=== PATIENT | male | born 1955 | race Caucasian/White ===

== ENCOUNTER 2018-06-18 18:15 | Emergency (ER) | payer OTHER ==
[~2018-06-18] VITALS: Ht 170.2 cm; Wt 72.6 kg
[~2018-06-18 18:15] MED LIST: ASPIRIN325 MG PO; ATORVASTATIN CA20 MG PO; CLOPIDOGREL75 MG PO; LISINOPRIL2.5 MG PO; METOPROLOL TART25 MG PO
[2018-06-18] MEDS ORDERED: MECLIZINE HCL25 MG PO (18:49)
[2018-06-18] MEDS ORDERED: PREDNISONE10 MG PO (18:49)
[2018-06-18] MEDS ORDERED: BUPROPION XL150 MG PO (18:49)
[2018-06-18 19:13] LABS: BASOPHILS % 0.3 % (0.0-1.0); EOSINOPHILS # (AUTO) 0.1 (0.0-0.4); HEMATOCRIT 45.3 % (38.2-49.6); HEMOGLOBIN 15.9 g/dL (14.0-18.0); LYMPHOCYTES # (AUTO) 2.7 (1.0-3.2); LYMPHOCYTES % 21.3 % (18.0-39.1); MEAN CORPUSCULAR HEMOGLOBIN 33.5 pg (28-32); MEAN CORPUSCULAR HGB CONC 35.1 g/dL (31-35); MEAN CORPUSCULAR VOLUME 95.6 fL (81-99); MONOCYTES # (AUTO) 0.9 (0.2-0.8); MONOCYTES % 6.8 % (4.4-11.3); NEUTROPHILS # (AUTO) 8.8 (2.1-6.9); NEUTROPHILS % 69.9 % (38.7-80.0); PLATELET COUNT 236 x10e3/uL (140-360); RED BLOOD COUNT 4.74 x10e6/uL (4.3-5.7)
[2018-06-18] MEDS ORDERED: MECLIZINE HCL 12.5 MG TAB PO ONE (19:15)
[2018-06-18 19:23] LABS: INR 0.81
[2018-06-18 19:24] LABS: PARTIAL THROMBOPLASTIN TIME 26.9 seconds (23.8-35.5)
[2018-06-18 19:25] LABS: ALANINE AMINOTRANSFERASE 17 IU/L (0-55); ALBUMIN 3.3 g/dL (3.5-5.0); ALBUMIN/GLOBULIN RATIO 1.2 (0.8-2.0); ALKALINE PHOSPHATASE 58 IU/L (40-150); ANION GAP 14.1 mmol/L (8-16); BLOOD UREA NITROGEN 19 mg/dL (7-26); BUN/CREATININE RATIO 17 (6-25); CALCIUM 8.9 mg/dL (8.4-10.2); CARBON DIOXIDE 22 mmol/L (22-29); CHLORIDE 109 mmol/L (98-107); CREATINE KINASE 54 IU/L (30-200); CREATININE, SERUM 1.11 mg/dL (0.72-1.25); EST GLOMERULAR FILTRATION RATE > 60 ML/MIN (60-); GLUCOSE 190 mg/dL (74-118); POTASSIUM 4.1 mmol/L (3.5-5.1); SODIUM 141 mmol/L (136-145)
[2018-06-18 19:34] LABS: BILIRUBIN,URINE NEGATIVE (NEGATIVE); CLARITY,URINE CLEAR (CLEAR); COLOR,URINE YELLOW (YELLOW); KETONES,URINE NEGATIVE (NEGATIVE); LEUKOCYTE ESTERASE ,URINE NEGATIVE (NEGATIVE); NITRITE,URINE NEGATIVE (NEGATIVE); PROTEIN,URINE DIPSTICK NEGATIVE (NEGATIVE); URINE UROBILINOGEN 0.2 mg/dL (0.2 - 1)
--- NOTE | 2018-06-18 19:39 | Diagnostic Imaging Report ---
EXAMINATION: Head CT without contrast. HISTORY:Dizziness and blurred vision for one week. COMPARISON:CT brain from 12/08/2016. TECHNIQUE: Multidetector axial images were obtained from the foramen magnum to the vertex without contrast. The images were reconstructed using brain and bone algorithms. Thin section brain images were reformatted into coronal and sagittal planes. Dose modulation, iterative reconstruction, and/or weight based adjustment of the mA/kV was utilized to reduce the radiation dose to as low as reasonably achievable. Intravenous contrast: None IMAGE QUALITY: Acceptable. FINDINGS: Skull/scalp: No lytic or blastic. lesions. No surgical changes. Parenchyma: Nonspecific bilateral frontoparietal patchy white matter hypodensity are likely related to small vessel ischemic changes. Unchanged cortical-based hypodensity in the posterior aspect of left superior temporal gyrus and inferior parietal lobule represents chronic encephalomalacia from prior vascular insult. No acute hemorrhage, mass or acute major vascular territorial infarct. Arteries: No density suggestive of thrombosis. Mild atherosclerotic calcification in bilateral carotid siphon. Dural sinuses: No abnormal density suggestive of thrombosis. Ventricles: Mild compensated dilatation due to volume loss. No hydrocephalus. Extra-axial spaces: No abnormal density. Brain volume: Normal for age. Craniocervical junction: No mass, Chiari malformation, or basilar invagination. Sella: No mass. Paranasal/mastoid sinuses: Mild mucosal thickening in bilateral ethmoid sinuses. IMPRESSION: No acute intracranial abnormality. No change since CT brain from 12/08/2016. Chronic findings: 1. Mild supratentorial white matter microvascular ischemic changes. 2. Mild generalized cerebral volume loss. 3. 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 Signed by: Dr. Rosa Akins M.D. on 06/18/2018 7:35 PM
--- NOTE | 2018-06-18 19:41 | Diagnostic Imaging Report ---
EXAMINATION: CHEST SINGLE (PORTABLE) INDICATION: Dizziness and blurry vision \S\ERMD ORDER \[id number] \S\1850 \S\Y COMPARISON: 12/08/2016 FINDINGS: AP view TUBES and LINES: None. LUNGS: Lungs are well inflated. There is no evidence of pneumonia or pulmonary edema. PLEURA: No significant pleural effusion or pneumothorax. HEART AND MEDIASTINUM: The cardiomediastinal silhouette is unremarkable. Median sternotomy wires are again seen. BONES AND SOFT TISSUES: No acute osseous lesion. Soft tissues are unremarkable. UPPER ABDOMEN: No free air under the diaphragm. IMPRESSION: No acute thoracic abnormality. Signed by: Dr. Krzysztof Ramon MD on 06/18/2018 7:37 PM
[2018-06-18 19:45] LABS: BACTERIA,URINE RARE /HPF
[2018-06-18 20:32] VITALS: BP 123/91
== END 2018-06-18 20:46 | disposition home or self-care (01) ==
LOC: ER 18:15
DX: R42 Dizziness and giddiness (principal); I25.10 Atherosclerotic heart disease of native coronary artery without angina pectoris; I10 Essential (primary) hypertension; I25.2 Old myocardial infarction; Z95.1 Presence of aortocoronary bypass graft; Z95.5 Presence of coronary angioplasty implant and graft; F17.210 Nicotine dependence, cigarettes, uncomplicated
CPT/HCPCS: 36415; 70450; 71045; 80053; 81001; 82550; 82553; 83735; 83880; 84484; 85025; 85610; 85730; 93005; 99284

== ENCOUNTER → 2018-09-17 | Outpatient (CLI) | payer OTHER ==
[~2018-09-17] MED LIST changes: +BUPROPION XL150 MG PO; +MECLIZINE HCL25 MG PO; +PREDNISONE10 MG PO; +REGADENOSON 0.4 MG/5 ML SYR IV ONE
--- NOTE | 2018-10-01 13:35 | Cardiology Report ---
DATE OF STUDY: September 17, 2018 LEXISCAN NUCLEAR STRESS TEST INDICATIONS: Chest pain. DESCRIPTION OF PROCEDURE: After informed consent, patient was brought to the stress lab. He was given 11 mCi of technetium 99 Myoview, and myocardial perfusion SPECT images were obtained in the horizontal long axis, short axis and vertical long axis views. Subsequently patient was given 0.4 mg of Lexiscan intravenously, and then 32 mCi of technetium 99 Myoview was given intravenously and myocardial perfusion SPECT images were obtained in the horizontal long axis, short axis and vertical long axis views. Gating images were also obtained. Patient tolerated this procedure without any complications. REPORT: Baseline EKG shows sinus rhythm at 81 beats per minute. Normal axis. Normal intervals. T-wave inversions in I, AVL. Q waves in the inferior leads and anterior leads. PARAMETERS 1. Resting heart rate is 75 beats per minute. 2. Maximal heart rate 102 beats per minute. 3. Resting blood pressure 125/85 mmHg. 4. Maximum blood pressure 131/88 mmHg. REASON FOR TERMINATION: Endpoint attained. INTERPRETATION 1. Negative for chest pain. 2. Negative for arrhythmias. 3. Blood pressure response consistent with Lexiscan. 4. No significant ST-T changes seen during Lexiscan infusion compared to baseline. 5. Analysis of SPECT images reveals a small area of decreased radioisotope uptake in the anterior wall both during stress and rest, and there is a small to moderate area of decreased radioisotope uptake in the inferior wall both during stress and rest. There is a small area of decreased radioisotope uptake in the lateral wall during stress, which reverses during rest. CONCLUSIONS 1. 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 There is a small area of lateral wall ischemia. 2. Inferolateral wall hypokinesis is noted. 3. The overall ejection fraction is 44%. Job#: [id number] EV
== END ==
LOC: NM 07:38
DX: M79.602 Pain in left arm (principal); I25.810 Atherosclerosis of coronary artery bypass graft(s) without angina pectoris; E78.5 Hyperlipidemia, unspecified
CPT/HCPCS: 78452; 93017; A9502; J2785

== ENCOUNTER 2018-11-05 21:30 | Observation (INO) | payer MEDICARE, OTHER ==
[~2018-11-05] VITALS: Ht 172.7 cm; Wt 81.8 kg
[~2018-11-05 21:30] MED LIST changes: -REGADENOSON 0.4 MG/5 ML SYR IV ONE
--- OUTSIDE RECORDS SUMMARY | 2018-11-05 21:33 | XMS REPORT ---
Author [facility] Address Unknown Phone Unavailable Care Team Providers Care Meteorology Faculty Member Name Role Phone KIKI NICOLE Unavailable Unavailable Shantel LACEY Unavailable Unavailable Problems This patient has no known problems. Allergies, Adverse Reactions, Alerts This patient has no known allergies or adverse reactions. Medications This patient has no known medications. Results Test Description Test Time Test Comments Text Results Atomic Results Result Comments Stress Test - Treadmill ONLY 2018-10-01 12:22:00 [place] [address] Patient Name : SHERRELL KEENE MR #: [id number] : 1955 Age/Sex: 63/M Adm Physician : KIKI NICOLE MD Admit Date : Location : [place] Room/Bed : REPORT: Cardiology Report DATE OF STUDY: September 17, 2018 LEXISCAN NUCLEAR STRESS TEST INDICATIONS: Chest pain. DESCRIPTION OF PROCEDURE: After informed consent, patient was brought to the stress lab. He was given 11 mCi of technetium 99 Myoview, and myocardial perfusion SPECT images were obtained in the horizontal long axis, short axis and vertical long axis views. Subsequently patient was given 0.4 mg of Lexiscan intravenously, and then 32 mCi of technetium 99 Myoview was given intravenously and myocardial perfusion SPECT images were obtained in the horizontal long axis, short axis and vertical long axis views. Gating images were also obtained. Patient tolerated this procedure without any complications. REPORT: Baseline EKG shows sinus rhythm at 81 beats per minute. Normal axis. Normal intervals. T-wave inversions in I, AVL. Q waves in the inferior leads and anterior leads. PARAMETERS 1. Resting heart rate is 75 beats per minute. 2. Maximal heart rate 102 beats per minute. 3. Resting blood pressure 125/85 mmHg. 4. Maximum blood pressure 131/88 mmHg. REASON FOR TERMINATION: Endpoint attained. INTERPRETATION 1. Negative for chest pain. 2. Negative for arrhythmias. 3. Blood pressure response consistent with Lexiscan. 4. No significant ST-T changes seen during Lexiscan infusion compared to baseline. 5. Analysis of SPECT images reveals a small area of decreased radioisotope uptake in the anterior wall both during stress and rest, and there is a small to moderate area of decreased radioisotope uptake in the inferior wall both during stress and rest. There is a small area of decreased radioisotope uptake in the lateral wall during stress, which reverses during rest. CONCLUSIONS 1. 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 There is a small area of lateral wall ischemia. 2. Inferolateral wall hypokinesis is noted. 3. The overall ejection fraction is 44%. Job#: [id number] EV Signature Date Dictated By: KIKI NICOLE MD Transcribed By: DALE on 10/01/18 <Electronically signed by KIKI NICOLE MD><<Signature on File>>10/02/18 [id number] COPY TO: CHEST SINGLE (PORTABLE) 2018-06-18 19:35:00 [place] [address] Patient Name: SHERRELL KEENE MR #: [id number] : 1955 Age/Sex: 62/M Req #: [id number] Adm Physician: Ordered by: RYAN ACKERMAN SUPERINTENDENT POWER Report #: [id number] Location: ER Room/Bed: Procedure: DX/CHEST SINGLE (PORTABLE) Exam Date: 06/18/18 Exam Time: 1850 REPORT STATUS: Signed EXAMINATION: CHEST SINGLE (PORTABLE) INDICATION: Dizziness and blurry vision COMPARISON: 12/08/2016 FINDINGS: AP view TUBES and LINES: None. LUNGS: Lungs are well inflated. There is no evidence of pneumonia or pulmonary edema. PLEURA: No significant pleural effusion or pneumothorax. HEART AND MEDIASTINUM: The cardiomediastinal silhouette is unremarkable. Median sternotomy wires are again seen. BONES AND SOFT TISSUES: No acute osseous lesion. Soft tissues are unremarkable. UPPER ABDOMEN: No free air under the diaphragm. IMPRESSION: No acute thoracic abnormality. Signed by: Dr. Krzysztof Andujar MD on 06/18/2018 7:37 PM Dictated By: KRZYSZTOF ANDUJAR MD 36 Transcribed By: NAVEED on 06/18/181936 COPY TO: RYAN ACKERMAN SUPERINTENDENT POWER CT BRAIN WO 2018-06-18 19:29:00 [place] [address] Patient Name: SHERRELL KEENE MR #: [id number] : 1955 Age/Sex: 62/M Req #: [id number] Adm Physician: Ordered by: RYAN ACKERMAN SUPERINTENDENT POWER Report #: [id number] Location: ER Room/Bed: Procedure: CT/CT BRAIN WO Exam Date: 06/18/18 Exam Time: 1850 REPORT STATUS: Signed EXAMINATION: Head CT without contrast. HISTORY:Dizziness and blurred vision for one week. COMPARISON:CT brain from 12/08/2016. TECHNIQUE: Multidetector axial images were obtained from the foramen magnum to the vertex without contrast. The images were reconstructed using brain and bone algorithms. Thin section brain images were reformatted into coronal and sagittal planes. Dose modulation, iterative reconstruction, and/or weight based adjustment of the mA/kV was utilized to reduce the radiation dose to as low as reasonably achievable. Intravenous contrast: None IMAGE QUALITY: Acceptable. FINDINGS: Skull/scalp: No lytic or blastic. lesions. No surgical changes. Parenchyma: Nonspecific bilateral frontoparietal patchy white matter hypodensity are likely related to small vessel ischemic changes. Unchanged cortical-based hypodensity in the posterior aspect of left superior temporal gyrus and inferior parietal lobule represents chronic encephalomalacia from prior vascular insult. No acute hemorrhage, mass or acute major vascular territorial infarct. Arteries: No density suggestive of thrombosis. Mild atherosclerotic calcification in bilateral carotid siphon. Dural sinuses: No abnormal density suggestive of thrombosis. Ventricles: Mild compensated dilatation due to volume loss. No hydrocephalus. Extra-axial spaces: No abnormal density. Brain volume: Normal for age. Craniocervical junction: No mass, Chiari malformation, or basilar invagination. Sella: No mass. Paranasal/mastoid sinuses: Mild mucosal thickening in bilateral ethmoid sinuses. IMPRESSION: No acute intracranial abnormality. No change since CT brain from 12/08/2016. Chronic findings: 1. Mild supratentorial white matter microvascular ischemic changes. 2. Mild generalized cerebral volume loss. 3. 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 Signed by: Dr. Rosa Akins M.D. on 06/18/2018 7:35 PM Dictated By: ROSA AKINS MD 34 Transcribed By: NAVEED on 06/18/181934 COPY TO: RYAN ACKERMAN NP
--- OUTSIDE RECORDS SUMMARY | 2018-11-05 21:33 | XMS REPORT | Clinical Summary ---
Author Author [facility] Address Unknown Phone Unavailable Care Team Providers Care Gas Or Water Meter Installer Name Role Phone Caleb Elder MD PCP Allergies Comments Active Allergy Reactions Severity Noted Date Penicillins Other (See 08/25/2018 Comments) Medications End Date Status Medication Sig Dispensed Refills Start Date Active atorvastatin (LIPITOR) 40 Take 40 mg by 4 MG tablet mouth daily. 8 Active buPROPion XL (WELLBUTRIN TAKE 1 TABLET 4 XL) 150 MG 24 hr tablet BY MOUTH 8 EVERY DAY IN THE MORNING Active clopidogrel (PLAVIX) 75 TAKE 1 TABLET 3 mg tablet (75 MG) BY 8 MOUTH DAILY Active isosorbide mononitrate TAKE 1 TABLET 2 (IMDUR) 30 MG 24 hr BY MOUTH 8 tablet EVERY DAY IN THE MORNING Active lisinopril Take 2.5 mg 4 (PRINIVIL,ZESTRIL) 2.5 mg by mouth 8 tablet daily. Active metoprolol tartrate Take 25 mg by 4 (LOPRESSOR) 25 mg tablet mouth 2 (two) 8 times a day. Active nitroglycerin (NITROSTAT) DISSOLVE 1 1 0.4 MG SL tablet TABLET UNDER 8 TONGUE NEEDED DIRECTED Active traMADol-acetaminophen TAKE 2 2 (ULTRACET) 37.5-325 mg TABLETS BY 8 per tablet MOUTH EVERY 8 HOURS NEEDED Active meclizine (ANTIVERT) 25 TAKE 1 TABLET 0 201 mg tablet BY MOUTH 8 TWICE A DAY FOR 14 DAYS Active Problems Problem Noted Date Asymmetrical sensorineural hearing loss 08/25/2018 Sensorineural hearing loss (SNHL) of both ears 08/25/2018 Encounters Care Team Description Date Type Specialty Dylan Galvez MD Sensorineural hearing loss (SNHL) of both ears; Asymmetrical sensorineural hearing loss 09/23/2018 Hospital Radiology Encounter Dylan Galvez MD Sensorineural hearing loss (SNHL) of both ears (Primary Dx); Asymmetrical sensorineural hearing loss 08/25/2018 Office Visit Otolaryngology after 11/04/2017 Social History Date Tobacco Use Types Packs/Day Years Used Current Every Day Smoker Cigarettes 1 40 Smokeless Tobacco: Never Used Alcohol Use Drinks/Week oz/Week Comments Yes Alcohol Habits Answer Date Recorded How often do you have a drink containing alcohol? Never 08/25/2018 How many drinks containing alcohol do you have on Not asked a typical day when you are drinking? How often do you have six or more drinks on one Not asked occasion? Sex Assigned at Date Recorded Not on file Industry Job Start Date Occupation Not on file Not on file Not on file Travel End Travel History Travel Start No recent travel history available. Last Filed Vital Signs Time Taken Vital Sign Reading 08/25/2018 9:22 AM [facility] Blood Pressure 126/83 08/25/2018 9:22 AM [facility] Pulse 76 - Temperature - - Respiratory Rate - - Oxygen Saturation - - Inhaled Oxygen - Concentration 09/23/2018 7:00 PM [facility] [employer] [facility] Weight 74.8 kg (165 lb) 08/25/2018 9:22 AM [facility] Height 175.3 cm (5' 9") 09/23/2018 7:00 PM [facility] [employer] Body Mass Index 24.37 Plan of Treatment Health Maintenance Due Date Last Done Comments COLON CANCER SCREENING 2004 SHINGLES VACCINES (1 of 2004 2) INFLUENZA VACCINE 04/29/2018 Procedures Comments Procedure Name Priority Date/Time Associated Diagnosis MRI IAC W WO CONTRAST Routine 09/23/2018 Sensorineural hearing 8:02 PM [facility] loss (SNHL) of both ears Asymmetrical sensorineural hearing loss ESTIMATED GFR Routine 09/23/2018 7:06 PM [facility] POC CREATININE Routine 09/23/2018 7:06 PM [facility] COMPUTERIZED DYNAMIC Routine 08/25/2018 Sensorineural hearing POSTUROGRAPHY 9:49 AM [facility] [employer] [facility] loss (SNHL) of both ears COMPREHENSIVE HEARING Routine 08/25/2018 Sensorineural hearing TEST 9:49 AM [facility] [employer] [facility] loss (SNHL) of both ears after 11/04/2017 Results * MRI IAC W Wo Contrast (09/23/2018 8:02 PM [facility] [employer]) Narrative Performed At EXAMINATION:MRI IAC W WO CONTRAST [facility] COMPARISON:None CLINICAL HISTORY:H90.3 Sensorineural hearing lossbilateral, H90.5 Unspecified sensorineural hearing loss, Asymmetric sensory-neural hearing loss. COMMENTS:Multiplanar MR imaging of the brain and internal auditory canals was obtained with and without contrast material. FINDINGS:There is an air-fluid level suspected in the right maxillary sinus. There is fluid like signal in the mastoid air cells greater on the right. The brain shows no acute ischemic change, hemorrhage or mass effect. There is a chronic insult at the left parietotemporal convexity junction. There is mild signal change in the white matter. There is mild involutional change in the brain. The internal auditory canals do not show a focal mass. IMPRESSION:No definite mass in the brain or internal auditory canals. [facility]-[id number] Procedure Note Interface, Radiology Results Incoming - 09/23/2018 8:13 PM [facility] EXAMINATION: MRI IAC W WO CONTRAST COMPARISON: None CLINICAL HISTORY: H90.3 Sensorineural hearing loss bilateral, H90.5 Unspecified sensorineural hearing loss, Asymmetric sensory-neural hearing loss. COMMENTS: Multiplanar MR imaging of the brain and internal auditory canals was obtained with and without contrast material. FINDINGS: There is an air-fluid level suspected in the right maxillary sinus. There is fluid like signal in the mastoid air cells greater on the right. The brain shows no acute ischemic change, hemorrhage or mass effect. There is a chronic insult at the left parietotemporal convexity junction. There is mild signal change in the white matter. There is mild involutional change in the brain. The internal auditory canals do not show a focal mass. IMPRESSION: No definite mass in the brain or internal auditory canals. [facility]-[id number] Performing Organization Address City/State/Zipcode Phone Number [facility] [address] [place] [address] * Estimated GFR (09/23/2018 7:06 PM [facility] [employer] [facility]) Estimated GFR 71 mL/min/1.73 m2 [facility] Comment: [facility] CatergoryUnitsInte rpretation G1 >=90 Normal or high G2 60-89Mildly decreased N8p29-12 Mildly to moderately decreased M7p49-38 Moderately to severely decreased G4 15-29Severely decreased G5 <15Kidney failure The eGFR was calculated using the Chronic Kidney Disease Epidemiology Collaboration (CKD-EPI) equation. Interpretation is based on recommendations of the National Kidney Foundation-Kidney Disease Outcomes Quality Initiative (NKF-KDOQI) published in 2014. Specimen Blood Performing Organization Address [facility] Phone Number [address] [place] [address] PATHOLOGY AND GENOMIC MEDICINE [address] * POC creatinine (09/23/2018 7:06 PM [facility] [employer] [facility]) POC creatinine 1.1Comment: Test performed by 0.7 - 1.2 mg/dl [facility] [id number] [facility] Specimen Blood Performing Organization Address [facility] Phone Number [address] [place] [address] PATHOLOGY AND GENOMIC MEDICINE [address] * Comprehensive hearing test (08/25/2018 9:49 AM [facility] [employer] [facility]) * Posturography (08/25/2018 9:49 AM [facility] [employer]) after 11/04/2017 Insurance Payer Benefit Subscriber ID Type Phone Address Plan / Group [employer] TEX[employer] xxxxxxxxx O [facility] Advance Directives Patient has advance care planning documents on file. For more information, lesley valadez contact: Jerry Livingston [address] [place] [address]
[2018-11-05] MEDS ORDERED: SODIUM CHLORIDE 0.9% 1000ML 1,000 ML IV STA (21:47)
[2018-11-05 21:59] LABS: BASOPHILS # (AUTO) 0.1 (0.0-0.1); EOSINOPHILS # (AUTO) 0.3 (0.0-0.4); EOSINOPHILS % 3.2 % (0.0-6.0); HEMATOCRIT 42.9 % (38.2-49.6); LYMPHOCYTES # (AUTO) 1.3 (1.0-3.2); LYMPHOCYTES % 14.6 % (18.0-39.1); MEAN CORPUSCULAR VOLUME 94.3 fL (81-99); MONOCYTES # (AUTO) 0.8 (0.2-0.8); MONOCYTES % 8.8 % (4.4-11.3); NEUTROPHILS # (AUTO) 6.5 (2.1-6.9); NEUTROPHILS % 71.7 % (38.7-80.0); PLATELET COUNT 227 x10e3/uL (140-360); RED BLOOD COUNT 4.55 x10e6/uL (4.3-5.7); RED CELL DISTRIBUTION WIDTH 12.6 % (11.7-14.4)
[2018-11-05] MEDS ORDERED: FAMOTIDINE 20 MG/2 ML VIAL IV ONE (22:00)
[2018-11-05] MEDS ORDERED: ACETAMINOPHEN 325 MG TAB PO ONE (22:00)
[2018-11-05] MEDS ORDERED: ONDANSETRON HCL INJ 2MG/ML 2ML 2 MG/ML VIAL IV PRN ×2 (22:00→23:00)
--- NOTE | 2018-11-05 22:08 | Diagnostic Imaging Report ---
EXAM: XR CHEST 1 VIEW DATE: 11/05/2018 9:47 PM INDICATION: Cough COMPARISON: 06/18/2018, no report available FINDINGS: Lines and Tubes: None Heart and Mediastinum: The heart is upper limits of normal. Sternotomy changes present. Lungs and Pleura: Mild prominence of the interstitium with minimal basilar opacities. Bones and Soft Tissues: No acute findings. IMPRESSION: 1. Mild interstitial prominence could represent edema or infectious/inflammatory process. Signed by: Dr. Dale Silverman MD on 11/05/2018 10:04 PM
[2018-11-05 22:15] LABS: ALBUMIN 3.4 g/dL (3.5-5.0); ALBUMIN/GLOBULIN RATIO 1.3 (0.8-2.0); CALCIUM 8.9 mg/dL (8.4-10.2); CREATININE, SERUM 1.28 mg/dL (0.72-1.25)
[2018-11-05 23:00] LABS: CLARITY,URINE CLEAR (CLEAR); COLOR,URINE YELLOW (YELLOW); LEUKOCYTE ESTERASE ,URINE NEGATIVE (NEGATIVE); NITRITE,URINE NEGATIVE (NEGATIVE)
[2018-11-05] MEDS ORDERED: ZOLPIDEM TARTRATE 5 MG TAB PO PRN (23:00)
[2018-11-05] MEDS ORDERED: DIPHENHYDRAMINE HCL INJ 50 MG/ML VIAL IV PRN (23:00)
[2018-11-05] MEDS ORDERED: MORPHINE SULFATE INJ 4 MG/ML INJ 1ML IV PRN (23:00)
[2018-11-05] MEDS ORDERED: ACETAMINOPHEN 325 MG TAB PO PRN (23:00)
[2018-11-05] MEDS ORDERED: LACTULOSE SYRUP 20 GM/30 ML UDC PO PRN (23:00)
[2018-11-05 23:01] LABS: BACTERIA,URINE RARE /HPF; BILIRUBIN,URINE NEGATIVE (NEGATIVE); EPITHELIAL CELLS,URINE RARE /LPF; KETONES,URINE NEGATIVE (NEGATIVE); PROTEIN,URINE DIPSTICK NEGATIVE (NEGATIVE); RBC,URINE 0-5 /HPF (0-5); URINE UROBILINOGEN 1 mg/dL (0.2 - 1); WBC,URINE (MAN) 0-5 /HPF (0-5)
--- OUTSIDE RECORDS SUMMARY | 2018-11-05 23:24 | XMS REPORT | Clinical Summary ---
Author Author [facility] Address Unknown Phone Unavailable Care Team Providers Care Fiberglass Grinder Name Role Phone Caleb Elder MD PCP [...] Taken Vital Sign Reading 08/25/2018 9:22 AM MONUMENT [facility] Blood Pressure 126/83 08/25/2018 9:22 AM MONUMENT SETTER Pulse 76 - Temperature - - Respiratory Rate - - Oxygen Saturation - - Inhaled Oxygen - Concentration 09/23/2018 7:00 PM MONUMENT SETTER Weight 74.8 kg (165 lb) 08/25/2018 9:22 AM [facility]UMENT [facility]TER Height 175.3 cm (5' 9") 09/23/2018 7:00 PM [facility] Body Mass Index 24.37 Plan of Treatment Health Maintenance Due Date Last Done Comments COLON CANCER SCREENING 2004 SHINGLES VACCINES (1 of 2004 2) INFLUENZA VACCINE 04/29/2018 Procedures Comments Procedure Name Priority Date/Time Associated Diagnosis MRI IAC W WO CONTRAST Routine 09/23/2018 Sensorineural hearing 8:02 PM [facility] loss (SNHL) of both ears Asymmetrical sensorineural hearing loss ESTIMATED GFR Routine 09/23/2018 7:06 PM [facility]UMENT [facility]TER POC CREATININE Routine 09/23/2018 7:06 PM [facility] COMPUTERIZED DYNAMIC Routine 08/25/2018 Sensorineural hearing POSTUROGRAPHY 9:49 AM MONUMENT [facility]TER loss (SNHL) of both ears COMPREHENSIVE HEARING Routine 08/25/2018 Sensorineural hearing TEST 9:49 AM [facility] loss (SNHL) of both ears after 11/04/2017 Results * MRI IAC W Wo Contrast (09/23/2018 8:02 PM MONUMENT SETTER) Narrative Performed At EXAMINATION:MRI IAC W WO [...] in the brain or internal auditory canals. [facility]-[id number] Procedure Note Interface, Radiology Results Incoming - 09/23/2018 8:13 PM MONUMENT SETTER EXAMINATION: MRI IAC W WO CONTRAST COMPARISON: [...] in the brain or internal auditory canals. [facility]-[id number] Performing Organization Address City/State/Zipcode Phone Number [facility] [address] [place] [address] * Estimated GFR (09/23/2018 7:06 PM MONUMENT SETTER) Estimated GFR 71 mL/min/1.73 m2 [facility] Comment: [facility] CatergoryUnitsInte rpretation G1 >=90 Normal or high G2 60-89Mildly decreased U9r41-95 Mildly to moderately decreased X7d85-87 Moderately to severely decreased G4 15-29Severely decreased G5 <15Kidney failure The eGFR was calculated using the Chronic Kidney Disease Epidemiology Collaboration (CKD-EPI) equation. Interpretation is based on recommendations of the National Kidney Foundation-Kidney Disease Outcomes Quality Initiative (NKF-KDOQI) published in 2014. Specimen Blood Performing Organization Address [facility] Phone Number [address] [place] [address] PATHOLOGY AND GENOMIC MEDICINE [address] * POC creatinine (09/23/2018 7:06 PM MONUMENT SETTER) POC creatinine 1.1Comment: Test performed by 0.7 - 1.2 mg/dl [facility] L[facility]ST[facility] [id number] [facility] Specimen Blood Performing Organization Address [facility] Centercode Phone Number [address] [place] [address] PATHOLOGY AND GENOMIC MEDICINE [address] * Comprehensive hearing test (08/25/2018 9:49 AM MONUMENT SETTER) * Posturography (08/25/2018 9:49 AM MONUMENT SETTER) after 11/04/2017 Insurance Payer Benefit Subscriber ID Type Phone Address Plan / Group [employer] xxxxxxxxx O [facility] Advance Directives Patient has advance care planning documents on file. For more information, lesley valadez contact: Jerry Livingston [address] [place] [address]
[2018-11-05] MEDS ORDERED: NITROGLYCERIN0.4 MG SL (23:32)
[2018-11-05] MEDS ORDERED: ISOSORBIDE MONO30 MG PO (23:32)
[2018-11-05] MEDS ORDERED: RANEXA1000 MG PO (23:32)
[2018-11-06] MEDS: LEVOFLOXACIN 500MG/D5W 100ML 100 ML IV SCH ×2 (00:25→23:20)
[2018-11-06] MEDS: ALBUTEROL/IPRATROPIUM 3 ML NEB NEB SCH ×4 (01:02→20:45)
[2018-11-06] MEDS: OSELTAMIVIR PHOSPHATE 75 MG CAP PO SCH ×3 (01:13→17:21)
[2018-11-06] MEDS ORDERED: ALBUTEROL/IPRATROPIUM 3 ML NEB NEB SCH (06:00)
--- NOTE | 2018-11-06 07:00 | NUR ---
ASSUMED CARE AT THIS TIME. PATIENT AWAKE AND ALERT SITTING IN BED. RESP EVEN AND UNLABORED. SKIN WARM AND DRY. NO SIGNS OF ACUTE DISTRESS NOTED AT THIS TIME. DENIES ANY C/O AT THIS TIME.
[2018-11-06] MEDS: FAMOTIDINE 20 MG/2 ML VIAL IV SCH ×2 (08:37→17:20)
[2018-11-06 08:49] LABS: BASOPHILS # (AUTO) 0.1 (0.0-0.1); EOSINOPHILS # (AUTO) 0.2 (0.0-0.4); EOSINOPHILS % 2.4 % (0.0-6.0); HEMATOCRIT 43.4 % (38.2-49.6); LYMPHOCYTES # (AUTO) 1.4 (1.0-3.2); LYMPHOCYTES % 17.9 % (18.0-39.1); MEAN CORPUSCULAR HEMOGLOBIN 32.8 pg (28-32); MEAN CORPUSCULAR HGB CONC 34.6 g/dL (31-35); MEAN CORPUSCULAR VOLUME 94.8 fL (81-99); MONOCYTES # (AUTO) 0.9 (0.2-0.8); NEUTROPHILS # (AUTO) 5.3 (2.1-6.9); NEUTROPHILS % 67.2 % (38.7-80.0); PLATELET COUNT 212 x10e3/uL (140-360); RED BLOOD COUNT 4.58 x10e6/uL (4.3-5.7); RED CELL DISTRIBUTION WIDTH 12.6 % (11.7-14.4)
[2018-11-06 08:59] LABS: ANION GAP 12.9 mmol/L (8-16); BLOOD UREA NITROGEN 11 mg/dL (7-26); BUN/CREATININE RATIO 12 (6-25); CARBON DIOXIDE 20 mmol/L (22-29); CHLORIDE 105 mmol/L (98-107); CREATININE, SERUM 0.93 mg/dL (0.72-1.25); EST GLOMERULAR FILTRATION RATE > 60 ML/MIN (60-); GLUCOSE 100 mg/dL (74-118); POTASSIUM 3.9 mmol/L (3.5-5.1); SODIUM 134 mmol/L (136-145)
[2018-11-06] MEDS ORDERED: RANOLAZINE 1000 MG PO SCH (09:00)
--- NOTE | 2018-11-06 09:40 | Consultation ---
DATE OF CONSULTATION: November 06, 2018 CARDIOLOGY CONSULTATION REASON FOR CONSULTATION: CAD. CONSULTING PHYSICIAN: Dr. Ayala HPI: This is a pleasant 63-year-old male that presented with generalized weakness. According to the patient, times 1 week he was having generalized weakness, cough and low appetite that he came to the emergency room for evaluation. He stated also it was accompanied with coughing and chest pain. He described the chest pain as a constant pressure on a scale of 3/10 with no radiation that gets worse with deep coughing. In the emergency room, they did a flu test and it was negative. He was started on flu medication. He has a history of CAD, AK, and CABG in the past. He had a recent cardiac catheterization in November 2016 that showed occlusion of the saphenous vein graft on the RCA, and then occlusion of the saphenous graft on the left circumflex. Medical management was recommended. In August 2018, he had another stress test that showed a small to moderate area of inferior wall infarct. Troponin was not done. Chest x-ray showed mild interstitial prominence, which could represent edema or infectious versus inflammatory process. He denied any nausea or vomiting, any palpitation, or diaphoresis. PAST MEDICAL HISTORY: Hypertension, hyperlipidemia, AK times 3, CAD, open heart surgery, vitamin D deficiency, prostate enlargement, and sciatica pain. PAST SURGICAL HISTORY: Cardiac stents, knee surgery, back surgery, and open heart surgery. FAMILY HISTORY: Positive for CAD. SOCIAL HISTORY: He drinks occasionally and smokes a pack to 2 packs of cigarettes daily. MEDICATIONS: See med list. ALLERGIES: HE IS ALLERGIC TO PENICILLIN. REVIEW OF SYSTEMS: Negative except those mentioned above. He is positive for flu-like symptoms. PHYSICAL EXAMINATION VITAL SIGNS: Temperature 98, heart rate 87, blood pressure 109/78, oxygen saturation 98% on 2 L nasal cannula. GENERAL: He is awake, alert and oriented times 3, but with generalized weakness. HEENT: Mucous membrane moist. NECK: Supple. LUNGS: Bilateral with decreased breath sounds. CARDIOVASCULAR: S1 and S2 present. ABDOMEN: Soft. NEUROLOGICAL: Intact. EXTREMITIES: With no edema. LABS: Sodium 134, potassium 4, chloride 103, CO2 20, BUN 14, creatinine 1.28, glucose 107. White blood cell 9.07, hemoglobin is 15, hematocrit 42.9, and platelets 227,000. IMPRESSION 1. Bronchitis. 2. Flu-like symptoms. 3. Coronary artery disease with coronary artery bypass graft. 4. Hypertension. 5. Hyperlipidemia. 6. History of myocardial infarction with stents. 7. Chest pain. 8. Tobacco abuse. 9. History of vitamin D deficiency. 10. Renal insufficiency. ASSESSMENT AND PLAN 1. Will go ahead and get an echocardiogram to reassess the LV and the valve function. 2. Will get serial cardiac enzymes. 3. Will continue his home medications. 4. He is getting Tamiflu for the possible flu-like symptoms. 5. He has been counseled on tobacco cessation. Further cardiac workup pending clinical course. Thank you for this consultation. DICTATED BY LIZ YEPEZ NP Job#: [id number] AVERY
[2018-11-06] MEDS ORDERED: MORPHINE SULFATE INJ 4 MG/ML INJ 1ML IV PRN (09:45)
[2018-11-06] MEDS: METOPROLOL TARTRATE 25 MG TAB PO SCH ×2 (09:49→17:00)
[2018-11-06] MEDS: ASPIRIN 325 MG TAB PO SCH (09:49)
[2018-11-06] MEDS: BUPROPION HCL 150 MG TABCR PO SCH (09:49)
[2018-11-06] MEDS: ISOSORBIDE MONONITRATE 30 MG TAB CR PO SCH (09:49)
[2018-11-06] MEDS: RANOLAZINE 500 MG TABSR PO SCH ×2 (09:49→17:00)
[2018-11-06] MEDS: CLOPIDOGREL BISULFATE 75 MG TAB PO SCH (09:49)
[2018-11-06] MEDS: LISINOPRIL 2.5 MG TAB PO SCH (09:49)
--- NOTE | 2018-11-06 11:00 | NUR ---
VERBAL REPORT GIVEN TO CINDY HERNANDEZ.
[2018-11-06 12:31] VITALS: BP 97/56
--- NOTE | 2018-11-06 12:31 | NUR ---
Patient arrived from ER via bed with ER Nurse at bedside. Vital signs are stable. Patient oriented to new room and call antonio. He was instructed to call for assistance as needed and verbalized understanding.
[2018-11-06 12:45] VITALS: BP 97/56
[2018-11-06] MEDS ORDERED: FUROSEMIDE INJ 10 MG/ML 4 ML VIAL IV ONE (13:15)
[2018-11-06 16:00] VITALS: BP 112/67
[2018-11-06] MEDS ORDERED: ENOXAPARIN SOD INJ 40 MG/0.4 ML SYR SC SCH (17:00)
[2018-11-06 18:12] VITALS: BP 112/67
--- NOTE | 2018-11-06 19:00 | NUR ---
Walking rounds done and report given.
--- NOTE | 2018-11-06 19:24 | NUR ---
report received and walking rounds complete.
[2018-11-06 20:00] VITALS: BP 117/72
[2018-11-06 20:30] VITALS: BP 117/72
[2018-11-06] MEDS ORDERED: ATORVASTATIN 20 MG TAB PO SCH (21:00)
[2018-11-06] MEDS ORDERED: ATORVASTATIN 40 MG TAB PO SCH (21:00)
[2018-11-06] MEDS ORDERED: SODIUM CHLORIDE 0.9% 250ML 250 ML ONE (23:26)
[2018-11-07 00:45] VITALS: BP 112/66
[2018-11-07 05:40] VITALS: BP 129/74
--- NOTE | 2018-11-07 06:56 | NUR ---
Dr. Melo called re: being attending MD. PACHECO aware and order sent to admitting to change attending to
--- NOTE | 2018-11-07 07:23 | NUR ---
report given to day shift nurse and walking rounds received.
[2018-11-07 08:00] VITALS: BP 108/72
[2018-11-07] MEDS: ALBUTEROL/IPRATROPIUM 3 ML NEB NEB SCH (08:27)
[2018-11-07 08:41] VITALS: BP 108/72
[2018-11-07] MEDS: ISOSORBIDE MONONITRATE 30 MG TAB CR PO SCH (09:00)
[2018-11-07] MEDS: ASPIRIN 325 MG TAB PO SCH (09:00)
[2018-11-07] MEDS: CLOPIDOGREL BISULFATE 75 MG TAB PO SCH (09:02)
[2018-11-07] MEDS: RANOLAZINE 500 MG TABSR PO SCH (09:02)
[2018-11-07] MEDS: FAMOTIDINE 20 MG/2 ML VIAL IV SCH (09:03)
[2018-11-07] MEDS: BUPROPION HCL 150 MG TABCR PO SCH (09:03)
[2018-11-07] MEDS: OSELTAMIVIR PHOSPHATE 75 MG CAP PO SCH (09:03)
[2018-11-07] MEDS ORDERED: NICOTINE 21 MG/EA PATCH TOP SCH (11:00)
[2018-11-07] MEDS ORDERED: FUROSEMIDE 40 MG TAB PO SCH (11:00)
[2018-11-07] MEDS ORDERED: POTASSIUM CHLORIDE 10MEQ EA PO SCH (11:00)
[2018-11-07] MEDS: LISINOPRIL 2.5 MG TAB PO SCH (11:16)
[2018-11-07] MEDS: METOPROLOL TARTRATE 25 MG TAB PO SCH (11:16)
[2018-11-07 11:30] VITALS: BP 111/73
[2018-11-07] MEDS ORDERED: INFLUENZA VIRUS VAC SPLIT INJ 0.5 ML SYR IM NR (12:00)
[2018-11-07] MEDS ORDERED: K DUR10 MEQ PO (12:43)
[2018-11-07] MEDS ORDERED: LASIX40 MG PO (12:43)
[2018-11-07] MEDS ORDERED: CHERATUSSIN AC118 ML PO (12:46)
[2018-11-07] MEDS ORDERED: LEVAQUIN500 MG PO (12:46)
[2018-11-07] MEDS ORDERED: MUCINEX DM ER1 EACH PO (12:48)
[2018-11-07] MEDS ORDERED: ZYRTEC10 MG PO (12:50)
[2018-11-07] MEDS ORDERED: MUCINEX600 MG PO (12:51)
--- NOTE | 2018-11-07 13:30 | NUR ---
Discharge instructions given, verbalized understanding. A&O x3 , no complaints or concerns. RX scripts given and discharge paper work given. V/S WNL. Daughter here to milk pickup truck driver patient per private vehicle, patient brought out and assisted standby into private vehicle.
--- NOTE | 2018-11-07 18:39 | Discharge Summary ---
PRIMARY CARE PHYSICIAN: Dr. Caleb Elder. CONSULTANTS: Dr. Jung Hartman. The patient discharged on observation. FINAL DIAGNOSES 1. Acute bronchitis. The patient is a smoker. 2. Upper respiratory infection. 3. Mild [id number] systolic dysfunction congestive heart failure. SUMMARY: A 63-year-old male with increasing congestion. He is coughing up greenish sputum. The patient also has smoked for many years. He came in with acute bronchitis basically. Chest x-ray showed some vascular congestion. At baseline, the patient does have coronary artery disease with previous bypass surgery. His echocardiogram previously approximately 40%. Patient is slightly vascular congested. The patient is stable today. He will go home with Levaquin 500 mg daily, Lasix 40 mg daily, potassium 20 mEq daily, Mucinex 600 mg b.i.d., Zyrtec 5 mg daily, and Sharifa-Tussin AC p.r.n. for cough. The patient to follow with his family doctor within a week. Patient is stable, discharged home today. Smoking cessation recommended. Job#: [id number] ESTRELLITA
== END 2018-11-07 13:38 | disposition home or self-care (01) ==
LOC: ER 21:30 → ERHOLD 23:19 → IMCU 11-06 12:18
PROVIDERS: ADMIT Internal Medicine; ATTEND Internal Medicine
DX: J44.0 Chronic obstructive pulmonary disease with (acute) lower respiratory infection (principal); J20.9 Acute bronchitis, unspecified; I50.23 Acute on chronic systolic (congestive) heart failure; R09.02 Hypoxemia; I25.10 Atherosclerotic heart disease of native coronary artery without angina pectoris; Z95.1 Presence of aortocoronary bypass graft; I11.0 Hypertensive heart disease with heart failure; E78.5 Hyperlipidemia, unspecified; Z88.0 Allergy status to penicillin; I25.2 Old myocardial infarction; Z95.5 Presence of coronary angioplasty implant and graft; Z72.0 Tobacco use; N28.9 Disorder of kidney and ureter, unspecified; E55.9 Vitamin D deficiency, unspecified
CPT/HCPCS: 36415 ×3; 71045; 80048; 80053; 81001; 83880; 84484 ×2; 85025 ×2; 87070; 87205; 87400; 93005; 93306; 94640 ×3; 99284; G0378 ×3; J1650; J1940; J1956; J2270 ×2; J2405; J7030; J7050

== ENCOUNTER → 2020-11-21 | Outpatient (CLI) | payer MEDICARE ==
[~2020-11-21] MED LIST changes: +CHERATUSSIN AC118 ML PO; +ISOSORBIDE MONO30 MG PO; +K DUR10 MEQ PO; +LASIX40 MG PO; +LEVAQUIN500 MG PO; +MUCINEX DM ER1 EACH PO; +MUCINEX600 MG PO; +NITROGLYCERIN0.4 MG SL; +RANEXA1000 MG PO; +ZYRTEC10 MG PO
== END ==
LOC: RAD 14:58
PROVIDERS: ATTEND Family Medicine
DX: R07.81 Pleurodynia (principal)
CPT/HCPCS: 71101